=== PATIENT | female | born 1990 | race Caucasian/White ===

== ENCOUNTER 2024-02-13 15:41 | Emergency (ER) | payer OTHER ==
[~2024-02-13] VITALS: Ht 170.2 cm; Wt 80.7 kg
[2024-02-13 17:31] LABS: Albumin, Blood 3.1 g/dL (3.4-5.0); Albumin/Globulin Ratio 0.7 (0.8-1.8); Bilirubin, Total 0.4 mg/dL (0.1-1.0); Calcium, Blood 8.9 mg/dL (8.5-10.1); Creatinine, Blood 0.62 mg/dL (0.40-1.00); Globulin, Blood 4.2 g/dL (2.2-4.0); Potassium, Blood 4.8 mmol/L (3.5-5.5); Total Protein, Blood 7.3 g/dL (6.4-8.2)
[2024-02-13] MEDS ORDERED: Trimethoprim/Sulfamethoxazole DS Tab PO ONE (20:15)
[2024-02-13] MEDS ORDERED: Cephalexin Monohydrate 500 MG Cap PO ONE (20:15)
[2024-02-13 20:17] LABS: BASOPHILS ABSOLUTE AUTO 0.05 K/mm3 (0.00-0.23); BASOPHILS PERCENT AUTO 1 % (0-2); EOSINOPHILS ABSOLUTE AUTO 0.02 K/mm3 (0.00-0.68); EOSINOPHILS PERCENT AUTO 0 % (0-6); Hemoglobin 10.2 g/dL (11.5-16.0); IMMATURE GRAN ABSOLUTE AUTO 0.04 K/mm3 (0.00-0.10); IMMATURE GRAN PERCENT AUTO 1 % (0-1); LYMPHOCYTES ABSOLUTE AUTO 3.33 K/mm3 (0.84-5.20); LYMPHOCYTES PERCENT AUTO 43 % (21-46); MONOCYTES ABSOLUTE AUTO 0.66 K/mm3 (0.16-1.47); MONOCYTES PERCENT AUTO 9 % (4-13); Mean Corpuscular HGB 30.4 pg (26.0-34.0); Mean Corpuscular HGB Conc 32.9 g/dL (31.5-36.5); Mean Corpuscular Volume 92 fL (80-100); NEUTROPHILS PERCENT AUTO 47 % (41-73); NRBC ABSOLUTE 0.04 K/mm3 (0.00-0.02); NRBC Auto 0.5 /100 WBC (0.0-0.2); RDW Coefficient Variation 13.4 % (11.7-14.2); RDW Standard Deviation 45.9 fL (35.1-46.3); Red Blood Cell Count 3.36 M/mm3 (3.80-5.20)
[2024-02-13] MEDS ORDERED: CEPH500 PO (20:25)
[2024-02-13] MEDS ORDERED: BACTRIM DS TAB1 EAC1 PO (20:25)
[2024-02-13 20:32] LABS: Mean Platelet Volume 10.5 fL (9.1-12.4); Platelet Count 201 K/mm3 (150-400)
== END 2024-02-13 20:58 | disposition home or self-care (01) ==
LOC: ER 15:41
PROVIDERS: Physician Assistant
DX: S82.231D Displaced oblique fracture of shaft of right tibia, subsequent encounter for closed fracture with routine healing (principal); S82.64XD Nondisplaced fracture of lateral malleolus of right fibula, subsequent encounter for closed fracture with routine healing; V49.9XXD Car occupant (driver) (passenger) injured in unspecified traffic accident, subsequent encounter; Z79.899 Other long term (current) drug therapy
CPT/HCPCS: 73610; 80053; 85025; 99283-25; A9270

== ENCOUNTER → 2024-02-15 | Outpatient (CLI) | payer OTHER ==
[~2024-02-15] MED LIST: BACTRIM DS TAB1 EAC1 PO; CEPH500 PO
== END | disposition home or self-care (01) ==
LOC: LAB 14:05 → LAB SHORT 14:05
DX: L97.312 Non-pressure chronic ulcer of right ankle with fat layer exposed (principal)
CPT/HCPCS: 87070; 87075; 87077; 87147; 87186; 87205